=== PATIENT | male | born 1935 | race Caucasian/White ===

== ENCOUNTER 2016-08-10 08:05 | Outpatient (CLI) | payer MEDICARE, OTHER | END 2016-08-10 08:06 | disposition home or self-care (01) | DX: I10 Essential (primary) hypertension (principal); E78.5 Hyperlipidemia, unspecified; E11.51 Type 2 diabetes mellitus with diabetic peripheral angiopathy without gangrene; E11.29 Type 2 diabetes mellitus with other diabetic kidney complication ==

== ENCOUNTER 2016-08-24 20:15 | Outpatient (CLI) | payer MEDICARE, OTHER ==
--- NOTE | 2016-08-25 14:00 | Ultrasound Report ---
CAROTID DUPLEX: 08/24/2016 CLINICAL INDICATION: CVA, upper limb paresthesias. TECHNIQUE: Real-time sonographic vascular imaging was performed by the banana grader through the carotid arteries utilizing both color-flow and Doppler spectral analysis. Multiple insurance follow up representative static images were saved for review. Vessel PSV cm/sec 2D Plaque Estimate % ICA/CCA PSV EDV cm/sec % Stenosis RCCA Prox 89.1 -- RCCA Dist 45.9 8.2 RECA 92.4 -- RT BULB 60.5 -- 1.3 5.9 ISIDRO Prox 64.2 -- 1.4 12.3 ISIDRO Mid 73.9 -- 1.6 19.4 ISIDRO Dist 70.5 -- 1.6 19.4 RVA 54.6 RVA flow direction: Antegrade. Vessel PSV cm/sec 2D Plaque Estimate % ICA/CCA PSV EDV cm/sec % Stenosis LCCA Prox 77.9 -- LCCA Dist 51.2 10.1 LECA 61.6 -- LFT BULB 51.5 -- 1 20.9 LICA Prox 62 -- 1.2 9.3 LICA Mid 65.4 -- 1.3 22.0 LICA Dist 38.7 -- 0.7 7.3 LVA 50.8 LVA flow direction: Antegrade. Velocity criteria are extrapolated from diameter data as defined by the Society of Radiologists in Ultrasound Consensus Conference Radiology 2003; 229; 340-346. Degree of Stenosis % ICA PSV cm/sec Plaque Estimate % ICA/CCA RSV Ratio ICA EDV cm/sec Normal < 125 None < 2.0 < 40 <50 < 125 < 50 < 2.0 < 40 50-69 125 - 130 >/= 50 2.0 - 4.0 40 - 100 >/= 70 but less than near occlusion > 230 >/= 50 > 4.0 > 100 Near occlusion High, low, or undetectable Visible lumen Variable Variable Total occlusion Undetectable No detectable lumen Not applicable Not applicable FINDINGS RIGHT: There is minimal calcified plaquing in the right carotid bifurcation, without evidence of a focal hemodynamically significant stenosis. LEFT: There is minimal calcified plaquing in the left carotid bifurcation, without evidence of a focal hemodynamically significant stenosis. The vertebral arteries demonstrate antegrade flow bilaterally. IMPRESSION: MINIMAL PLAQUING BILATERALLY, WITHOUT EVIDENCE OF A FOCAL HEMODYNAMICALLY SIGNIFICANT CAROTID STENOSIS. MTDD
== END 2016-08-24 20:45 | disposition home or self-care (01) ==
LOC: DI 20:15
PROVIDERS: ATTEND Family Medicine
DX: R20.2 Paresthesia of skin (principal); Z86.73 Personal history of transient ischemic attack (TIA), and cerebral infarction without residual deficits
CPT/HCPCS: 70551; 71250; 93880

== ENCOUNTER 2016-08-27 09:00 | Outpatient (CLI) | payer MEDICARE, OTHER ==
--- NOTE | 2016-08-27 10:47 | MRI Report ---
* REVISED: THIS REPORT WAS ORIGINALLY SIGNED ON 08/27/2016 @ 1047. REPORT MOVED TO CORRECT ACCOUNT ON 09/16/2016. EXAM: MRI BRAIN WITHOUT CONTRAST EXAM DATE: 08/27/2016 10:05 AM. CLINICAL HISTORY: History of cerebrovascular accident, paresthesia of left upper limb. Dyspnea on exertion. COMPARISON: Carotid ultrasound 08/24/2016 TECHNIQUE: Multiplanar, multisequence T1-weighted and fluid-sensitive MR sequences of the brain were performed. Sequences optimized for routine evaluation. Other: None. IV Contrast: None. FINDINGS: Brain Volume: Moderate diffuse cerebral and cerebellar volume loss with ex vacuo dilatation of the ventricles and sulci, appropriate for age. Parenchyma/Dura: No masses, acute or subacute infarcts, or hemorrhage. Moderate scattered T2/FLAIR hyperintense periventricular, deep, and subcortical white matter lesions within cerebral hemispheres bilaterally, right cerebellar hemisphere, as well as within the brayan centrally. No parenchymal microhemorrhages. Ventricles/Cisterns: Moderate, age-appropriate, ex vacuo dilatation of the ventricles. Sinuses: Mild mucosal thickening right maxillary sinus. Remaining paranasal sinuses are clear. Bones: Normal. Other: Status post right lens replacement surgery. The visualized orbits are otherwise unremarkable. IMPRESSION: 1. No evidence of acute or subacute infarct, intracranial hemorrhage, mass, midline shift, or hydrocephalus. 2. Moderate scattered T2/FLAIR hyperintense periventricular, deep, and subcortical white matter lesions within cerebral hemispheres bilaterally, right cerebellar hemisphere, as well as within the brayan centrally. 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 3. Moderate diffuse cerebral and cerebellar volume loss with ex vacuo dilatation of the ventricles and sulci, appropriate for age. [facility] Referring Provider Line: [phone] SITE ID: [id number] MTDD
--- NOTE | 2016-08-27 14:30 | CT Report ---
* REVISED: THIS REPORT WAS ORIGINALLY SIGNED ON 08/28/2016 @ 0809. REPORT MOVED TO CORRECT ACCOUNT ON 09/16/2016. CT OF THE CHEST WITHOUT CONTRAST: 08/27/2016 CLINICAL INDICATION: Dyspnea on exertion, abnormal chest x-ray. COMPARISON: Chest x-ray of 08/18/2016. TECHNIQUE: Axial CT images of the chest were obtained without intravenous contrast. No previous CT is available for comparison. FINDINGS: The heart and great vessels demonstrate atherosclerotic calcifications and changes of previous cardiac surgery. No hilar or mediastinal lymphadenopathy is present. There is a prominent left epicardial fat pad, accounting for some of the lingular opacity seen on previous chest x-ray. The lungs demonstrate dependent atelectasis. No focal consolidation or pulmonary nodule is seen. No effusion or pneumothorax is present. The osseous structures demonstrate degenerative and postsurgical changes. Limited evaluation of upper abdominal structures demonstrates postoperative changes of left nephrectomy. IMPRESSION: PROMINENT LEFT EPICARDIAL FAT PAD, ACCOUNTING FOR THE CHEST X-RAY ABNORMALITY. BIBASILAR ATELECTASIS. NO SUSPICIOUS PULMONARY NODULE OR MASS LESION IS SEEN. In accordance with CT protocol optimization, one or more of the following dose reduction techniques were utilized for this exam: automated exposure control, adjustment of mA and/or KV based on patient size, or use of iterative reconstructive technique. JOB #: [id number] EXT JOB #: [id number] [facility]
== END 2016-08-27 11:30 ==
LOC: DI 09:00
PROVIDERS: ATTEND Family Medicine
DX: R06.00 Dyspnea, unspecified (principal); Z86.73 Personal history of transient ischemic attack (TIA), and cerebral infarction without residual deficits; R20.2 Paresthesia of skin
CPT/HCPCS: 70551; 71250

== ENCOUNTER 2016-11-24 07:20 | Outpatient (CLI) | payer MEDICARE, OTHER ==
[2016-11-24 14:11] LABS: HEMOGLOBIN A1C 0.97 g/dL
[2016-11-24 14:31] LABS: ALBUMIN/GLOBULIN RATIO 1.1 (1.0-2.2); BILIRUBIN,TOTAL 0.7 mg/dL (0.2-1.0); BUN - BLOOD UREA NITROGEN 30 mg/dL (6-20); CALCIUM 8.9 mg/dL (8.5-10.3); CARBON DIOXIDE - CO2 28 mmol/L (21-32); CHLORIDE 102 mmol/L (101-111); CHOLESTEROL 125 mg/dL; GFR - MDRD 32 (>89); GLUCOSE 173 mg/dL (70-100); HDL CHOLESTEROL 41 mg/dL; LDL/HDL RATIO 1.3 (<3.6); SODIUM 140 mmol/L (135-145); TOTAL PROTEIN 7.3 g/dL (6.7-8.2); TRIGLYCERIDES 148 mg/dL; VLDL CHOLESTEROL 30 mg/dL
== END 2016-11-24 07:21 | disposition home or self-care (01) ==
LOC: LAB.WCP 07:20
PROVIDERS: ATTEND Family Medicine
DX: E11.9 Type 2 diabetes mellitus without complications (principal); E78.5 Hyperlipidemia, unspecified
CPT/HCPCS: 36415; 80053; 80061; 83036

== ENCOUNTER 2016-12-11 15:06 | Outpatient (CLI) | payer MEDICARE, OTHER ==
[2016-12-11 14:53] LABS: CALCIUM 8.4 mg/dL (8.5-10.3); CREATININE 1.8 mg/dL (0.6-1.2); POTASSIUM 4.1 mmol/L (3.5-5.0)
== END 2016-12-11 15:07 | disposition home or self-care (01) ==
LOC: LAB.WCP 15:06
PROVIDERS: ATTEND Nurse Practitioner Family
DX: Z51.81 Encounter for therapeutic drug level monitoring (principal); Z79.899 Other long term (current) drug therapy
CPT/HCPCS: 36415; 80048

== ENCOUNTER 2017-08-05 10:11 | Outpatient (CLI) | payer MEDICARE, OTHER ==
[2017-08-05 12:49] LABS: BASOPHILS % (AUTO) 0.6 %; EOSINOPHILS # (AUTO) 0.1 10^3/uL (0.0-0.7); HGB - HEMOGLOBIN 13.6 g/dL (14.0-18.0); LYMPHOCYTES # (AUTO) 0.9 10^3/uL (1.5-3.5); LYMPHOCYTES % (AUTO) 13.6 %; MEAN CORPUSCULAR HEMOGLOBIN 31.4 pg (27.0-31.0); MEAN CORPUSCULAR HGB CONC 33.6 g/dL (32.0-36.0); MEAN CORPUSCULAR VOLUME 93.4 fL (80.0-94.0); MEAN PLATELET VOLUME 8.9 fL (7.4-11.4); MONOCYTES # (AUTO) 0.4 10^3/uL (0.0-1.0); MONOCYTES % (AUTO) 6.8 %; NEUTROPHILS # (AUTO) 5.1 10^3/uL (1.5-6.6); PLT - PLATELET COUNT 229 10^3/uL (130-450); RED BLOOD COUNT 4.34 10^6/uL (4.70-6.10); RED CELL DISTRIBUTION WIDTH 14.2 % (12.0-15.0); WHITE BLOOD COUNT 6.6 x10^3/uL (4.8-10.8)
[2017-08-05 13:02] LABS: HEMOGLOBIN A1C 0.81 g/dL; HEMOGLOBIN A1C % 7.1 % (4.6-6.2)
[2017-08-05 13:16] LABS: ALBUMIN 3.8 g/dL (3.2-5.5); ALBUMIN/GLOBULIN RATIO 1.1 (1.0-2.2); ALKALINE PHOSPHATASE 79 IU/L (42-121); ALT ALANINE AMINOTRANSFERASE 19 IU/L (10-60); AST ASPARTATE AMINOTRANSFERASE 25 IU/L (10-42); BUN - BLOOD UREA NITROGEN 39 mg/dL (6-20); CALCIUM 8.6 mg/dL (8.5-10.3); CARBON DIOXIDE - CO2 26 mmol/L (21-32); CHLORIDE 104 mmol/L (101-111); CHOL/HDL RATIO 2.8 (<5.0); CHOLESTEROL 102 mg/dL; CREATININE 2.3 mg/dL (0.6-1.2); GFR - MDRD 27 (>89); GLUCOSE 125 mg/dL (70-100); HDL CHOLESTEROL 36 mg/dL; LDL CHOLESTEROL,CALCULATED 46 mg/dL; LDL/HDL RATIO 1.3 (<3.6); SODIUM 137 mmol/L (135-145); TOTAL PROTEIN 7.4 g/dL (6.7-8.2); URIC ACID 7.1 mg/dL (2.6-7.2); VLDL CHOLESTEROL 20 mg/dL
== END 2017-08-05 10:12 ==
LOC: LAB.WCP 10:11
PROVIDERS: ATTEND Family Medicine
DX: E11.29 Type 2 diabetes mellitus with other diabetic kidney complication (principal)
CPT/HCPCS: 36415; 80053; 80061; 83036; 83721; 84550; 85025

== ENCOUNTER 2017-09-03 15:27 | Outpatient (CLI) | payer MEDICARE, OTHER ==
[2017-09-03 18:49] LABS: BASOPHILS % (AUTO) 0.4 %; EOSINOPHILS # (AUTO) 0.1 10^3/uL (0.0-0.7); EOSINOPHILS % (AUTO) 1.3 %; HGB - HEMOGLOBIN 13.4 g/dL (14.0-18.0); LYMPHOCYTES # (AUTO) 0.7 10^3/uL (1.5-3.5); LYMPHOCYTES % (AUTO) 12.8 %; MEAN CORPUSCULAR HEMOGLOBIN 32.3 pg (27.0-31.0); MEAN CORPUSCULAR HGB CONC 33.7 g/dL (32.0-36.0); MEAN PLATELET VOLUME 8.8 fL (7.4-11.4); MONOCYTES # (AUTO) 0.4 10^3/uL (0.0-1.0); MONOCYTES % (AUTO) 6.7 %; NEUTROPHILS # (AUTO) 4.5 10^3/uL (1.5-6.6); NEUTROPHILS % (AUTO) 78.8 %; PLT - PLATELET COUNT 204 10^3/uL (130-450); RED BLOOD COUNT 4.14 10^6/uL (4.70-6.10); RED CELL DISTRIBUTION WIDTH 14.8 % (12.0-15.0); WHITE BLOOD COUNT 5.8 x10^3/uL (4.8-10.8)
[2017-09-03 18:55] LABS: CREATININE 2.5 mg/dL (0.6-1.2)
[2017-09-03 19:07] LABS: HB2 TOTAL 14.5 g/dL; HEMOGLOBIN A1C 0.77 g/dL
== END 2017-09-03 15:28 | disposition home or self-care (01) ==
LOC: LAB.WCP 15:27
PROVIDERS: ATTEND Orthopaedic Surgery
DX: Z01.812 Encounter for preprocedural laboratory examination (principal); Z01.818 Encounter for other preprocedural examination; R73.09 Other abnormal glucose; N39.9 Disorder of urinary system, unspecified
CPT/HCPCS: 36415; 80048; 83036; 85025

== ENCOUNTER 2017-09-06 08:00 | Outpatient (CLI) | payer MEDICARE, OTHER ==
[2017-09-06 19:26] LABS: BILIRUBIN,URINE NEGATIVE (NEGATIVE); GLUCOSE, URINE (UA) 100 mg/dL (NEGATIVE); KETONES,URINE (UA) NEGATIVE (NEGATIVE); LEUKOCYTE ESTERASE, URINE NEGATIVE (NEGATIVE); NITRITE,URINE NEGATIVE (NEGATIVE); OCCULT BLOOD,URINE SMALL (NEGATIVE); PROTEIN,URINE >=300 mg/dL (NEGATIVE); UROBILINOGEN,URINE 0.2 (NORMAL) E.U./dL (NORMAL)
[2017-09-06 19:29] LABS: CLARITY,URINE CLEAR (CLEAR)
[2017-09-06 20:00] LABS: BACTERIA,URINE None Seen /HPF (None Seen); CASTS, URINE 3-5 Hyaline Casts /LPF; EPITHELIAL CELLS,UR FEW Renal Tubular /HPF (<= Few); RBC,URINE 0-5 /HPF (0-5); SQUAMOUS EPITHELIAL CELL,UR RARE Squamous (<= Few)
== END 2017-09-06 08:01 | disposition home or self-care (01) ==
LOC: LAB.WCP 08:00
PROVIDERS: ATTEND Orthopaedic Surgery
DX: Z01.812 Encounter for preprocedural laboratory examination (principal); E11.9 Type 2 diabetes mellitus without complications; N39.9 Disorder of urinary system, unspecified; R73.09 Other abnormal glucose
CPT/HCPCS: 81001; 81003; 82043; 87086

== ENCOUNTER 2018-07-05 08:44 | Outpatient (CLI) | payer MEDICARE, OTHER ==
[2018-07-05 12:25] LABS: BILIRUBIN,URINE NEGATIVE (NEGATIVE); GLUCOSE, URINE (UA) 100 mg/dL (NEGATIVE); KETONES,URINE (UA) NEGATIVE (NEGATIVE); LEUKOCYTE ESTERASE, URINE NEGATIVE (NEGATIVE); NITRITE,URINE NEGATIVE (NEGATIVE); OCCULT BLOOD,URINE TRACE-INTA (NEGATIVE); PH,URINE 6.5 PH (5.0-7.5); PROTEIN,URINE 100 mg/dL (NEGATIVE); UROBILINOGEN,URINE 0.2 (NORMAL) E.U./dL (NORMAL)
[2018-07-05 12:29] LABS: CLARITY,URINE CLEAR (CLEAR)
[2018-07-05 12:34] LABS: BASOPHILS % (AUTO) 0.7 %; EOSINOPHILS # (AUTO) 0.1 10^3/uL (0.0-0.7); EOSINOPHILS % (AUTO) 2.1 %; HGB - HEMOGLOBIN 13.2 g/dL (14.0-18.0); LYMPHOCYTES # (AUTO) 0.6 10^3/uL (1.5-3.5); LYMPHOCYTES % (AUTO) 11.2 %; MEAN CORPUSCULAR HEMOGLOBIN 30.2 pg (27.0-31.0); MEAN CORPUSCULAR HGB CONC 32.7 g/dL (32.0-36.0); MEAN CORPUSCULAR VOLUME 92.3 fL (80.0-94.0); MEAN PLATELET VOLUME 9.4 fL (7.4-11.4); MONOCYTES # (AUTO) 0.4 10^3/uL (0.0-1.0); NEUTROPHILS # (AUTO) 4.4 10^3/uL (1.5-6.6); PLT - PLATELET COUNT 211 10^3/uL (130-450); RBC,URINE 0-5 /HPF (0-5); RED BLOOD COUNT 4.38 10^6/uL (4.70-6.10); RED CELL DISTRIBUTION WIDTH 15.1 % (12.0-15.0); WHITE BLOOD COUNT 5.5 x10^3/uL (4.8-10.8)
[2018-07-05 12:35] LABS: BACTERIA,URINE Rare /HPF (None Seen); SQUAMOUS EPITHELIAL CELL,UR RARE Squamous (<= Few)
[2018-07-05 12:40] LABS: CHOL/HDL RATIO 2.8 (<5.0); CHOLESTEROL 108 mg/dL; HDL CHOLESTEROL 39 mg/dL; LDL CHOLESTEROL,CALCULATED 47 mg/dL; LDL/HDL RATIO 1.2 (<3.6); VLDL CHOLESTEROL 22 mg/dL
[2018-07-05 12:49] LABS: ALBUMIN 3.7 g/dL (3.2-5.5); ALBUMIN/GLOBULIN RATIO 1.1 (1.0-2.2); BILIRUBIN,TOTAL 0.9 mg/dL (0.2-1.0); CALCIUM 8.7 mg/dL (8.5-10.3); CREATININE 2.6 mg/dL (0.6-1.2); URIC ACID 6.2 mg/dL (2.6-7.2)
[2018-07-05 12:52] LABS: HB2 TOTAL 13.9 g/dL; HEMOGLOBIN A1C 0.81 g/dL; HEMOGLOBIN A1C % 7.5 % (4.6-6.2)
[2018-07-05 13:05] LABS: CREATININE,URINE 73.5 mg/dL; PROTEIN/CREATININE RATIO,URINE 4.2 (<=0.2)
== END 2018-07-05 08:45 | disposition home or self-care (01) ==
LOC: LAB.WCP 08:44
PROVIDERS: ATTEND Family Medicine
DX: E11.22 Type 2 diabetes mellitus with diabetic chronic kidney disease (principal); N18.4 Chronic kidney disease, stage 4 (severe)
CPT/HCPCS: 36415; 80053; 80061; 81001; 82043; 82306; 82570; 83036; 83721; 83970; 84156; 84550; 85025; 87086

== ENCOUNTER 2018-08-19 08:00 | Outpatient (CLI) | payer MEDICARE, OTHER ==
[2018-08-19 19:04] LABS: CALCIUM 8.2 mg/dL (8.5-10.3); CREATININE 3.1 mg/dL (0.6-1.2); PHOSPHORUS 4.4 mg/dL (2.5-4.6)
[2018-08-19 20:30] LABS: CREATININE,URINE 86.3 mg/dL; PROTEIN/CREATININE RATIO,URINE 2.4 (<=0.2)
== END 2018-08-19 23:59 | disposition home or self-care (01) ==
LOC: LAB.WCP 08:00
PROVIDERS: ATTEND Internal Medicine
DX: N18.4 Chronic kidney disease, stage 4 (severe) (principal)
CPT/HCPCS: 36415; 80048; 82570; 84100; 84156

== ENCOUNTER 2018-10-17 14:50 | Outpatient (CLI) | payer MEDICARE, OTHER ==
[2018-10-17 18:42] LABS: CALCIUM 8.2 mg/dL (8.5-10.3); CREATININE 3.5 mg/dL (0.6-1.2)
== END 2018-10-17 14:51 | disposition home or self-care (01) ==
LOC: LAB.WCP 14:50
PROVIDERS: ATTEND Internal Medicine
DX: N18.4 Chronic kidney disease, stage 4 (severe) (principal); R39.9 Unspecified symptoms and signs involving the genitourinary system
CPT/HCPCS: 36415; 80048; 87086

== ENCOUNTER 2018-10-24 06:08 | Day surgery (SDC) | payer MEDICARE, OTHER ==
[2018-10-24] MEDS ORDERED: levoFLOXacin 500 MG/100 ML 500 MG/100 ML BAG IV ONE (06:31)
--- NOTE | 2018-10-24 07:07 | ANESTHESIA ---
Pre-Anesthesia VS, & Labs - Diagnosis history of bladder tumor - Procedure cysto, TURBT, Retrograde pyeloragram Vital Signs: Temp Pulse Resp BP Pulse Ox 36.2 C L 69 20 190/84 H 99 10/24/18 06:30 10/24/18 06:30 10/24/18 06:30 10/24/18 06:30 10/24/18 06:30 Height 5 ft 10 in Weight (kg) 120.6 kg Body Mass Index 34.0 - NPO >8 hours Home Medications and Allergies Home Medications: Ambulatory Orders diltiaZEM [Cardizem] 60 mg PO ONCE 10/24/18 hydrALAZINE [Apresoline] 25 mg PO 10/24/18 Aspirin [Aspir 81] 81 mg PO DAILY 11/04/12 Allopurinol 100 mg PO BID 11/07/12 Ezetimibe [Zetia] 10 mg PO DAILY 11/07/12 Omeprazole 20 mg PO DAILY 11/07/12 Vit B12/FA/Pyridoxine HCl/Aa15 [Glycotrol Capsule] 1 each PO DAILY 11/07/12 Pioglitazone HCl [Actos] 30 mg PO DAILY 11/09/13 Acetaminophen [Tylenol] 1,300 mg PO Q6H PRN 11/13/13 Atorvastatin Calcium 40 mg PO DAILY 08/06/15 Furosemide 20 mg PO DAILY 08/06/15 Isosorbide Mononitrate [Isosorbide Mononitrate ER] 60 mg PO DAILY 08/06/15 diltiaZEM [Cardizem] 60 mg PO ONCE 10/24/18 hydrALAZINE [Apresoline] 25 mg PO 10/24/18 Allergies/Adverse Reactions: Allergies Allergy/AdvReac Type Severity Reaction Status Date / Time griseofulvin Allergy Severe Anaphylaxis Verified 11/28/13 08:34 bacitracin Allergy Intermediate Rash Verified 11/04/12 14:10 [From Neosporin ([id number])] bacitracin zinc * Allergy Intermediate Rash Verified 11/04/12 14:10 [From Neosporin ([id number])] neomycin sulfate * Allergy Intermediate Rash Verified 11/04/12 14:10 [From Neosporin ([id number])] polymyxin B Allergy Intermediate Rash Verified 11/04/12 14:10 [From Neosporin ([id number])] Anes History & Medical History - Anesthetic History Anesthesia Complications: reports: No previous complications - Medical History Cardiovascular: reports: Hypertension, High cholesterol, Coronary artery disease Pulmonary: reports: Shortness of breath, Sleep apnea (states he is "borderline" and does not use CPAP) Gastrointestinal: reports: GERD (controlled with medication) Urinary: reports: Renal insuffiency (CKD, Cr-3.5, BUN-63), Frequency, Other (S/p nephrectomy) Neuro: reports: CVA (no residual) Musculoskeletal: reports: Osteoarthritis, Gout Endocrine/Autoimmune: reports: Type 2 diabetes Blood Disorders: reports: None Skin: reports: None Smoking Status: Former smoker (quit 37 years ago) Psychosocial: reports: Alcohol (2 mixed drinks per day) - Surgical History General: Colonoscopy Eyes Ears Nose Throat (EENT): Cataracts Cardiothoracic: Angioplasty, CABG, Coronary stent, Cardiac catheterization Urologic: Nephrectomy, Bladder surgery Results - EKG Results EKG Comparison: Reviewed EKG - Echo Results Echo Results: Report reviewed Exam General: Alert, Oriented x3, Cooperative, No acute distress Dental: Dentures full Upper, Partials Lower Mouth Openin Fingerbreadth Neck Mobility: Normal Mallampati classification: II Thyromental Distance: 4-6 cm Respiratory: Wheezing (expiratory) Cardiovascular: Regular rate, Normal S1, Normal S2, No murmurs Plan Anesthesia Type: General Consent for Procedure(s) Verified and Reviewed: Yes Code Status: Attempt Resuscitation ASA classification: 3-Severe systemic disease Is this case an emergency?: No
[2018-10-24] MEDS ORDERED: LACTATED RINGERS 1,000 ML IV ONE (07:08)
[2018-10-24] MEDS ORDERED: IOTHALAMATE MEGLUMINE 50 ML VIAL ONE (07:28)
[2018-10-24] MEDS ORDERED: SUGAMMADEX 200 MG/2 ML VIAL IVP ONE (07:30)
[2018-10-24 10:10] VITALS: BP 160/92
== END 2018-10-24 06:09 | disposition home or self-care (01) ==
LOC: SDS 06:08
PROVIDERS: ATTEND Urology
PROC: 0T5B8ZZ Destruction of Bladder, Via Natural or Artificial Opening Endoscopic (ICD-10-PCS; principal; 2018-10-24 07:30)
DX: C67.9 Malignant neoplasm of bladder, unspecified (principal); R39.9 Unspecified symptoms and signs involving the genitourinary system; I13.0 Hypertensive heart and chronic kidney disease with heart failure and stage 1 through stage 4 chronic kidney disease, or unspecified chronic kidney disease; I50.32 Chronic diastolic (congestive) heart failure; N18.9 Chronic kidney disease, unspecified; E11.22 Type 2 diabetes mellitus with diabetic chronic kidney disease; Z79.4 Long term (current) use of insulin; I25.10 Atherosclerotic heart disease of native coronary artery without angina pectoris; G47.30 Sleep apnea, unspecified; Z87.891 Personal history of nicotine dependence; Z95.1 Presence of aortocoronary bypass graft; Z95.5 Presence of coronary angioplasty implant and graft
CPT/HCPCS: 52234; J7120; Q9961

== ENCOUNTER 2018-12-06 08:00 | Outpatient (CLI) | payer MEDICARE, OTHER ==
[2018-12-06 12:39] LABS: BASOPHILS % (AUTO) 0.4 %; EOSINOPHILS # (AUTO) 0.2 10^3/uL (0.0-0.7); EOSINOPHILS % (AUTO) 3.4 %; HGB - HEMOGLOBIN 12.4 g/dL (14.0-18.0); LYMPHOCYTES # (AUTO) 0.7 10^3/uL (1.5-3.5); LYMPHOCYTES % (AUTO) 12.8 %; MEAN CORPUSCULAR HGB CONC 32.9 g/dL (32.0-36.0); MEAN CORPUSCULAR VOLUME 97.2 fL (80.0-94.0); MEAN PLATELET VOLUME 11.3 fL (7.4-11.4); MONOCYTES # (AUTO) 0.4 10^3/uL (0.0-1.0); MONOCYTES % (AUTO) 7.7 %; NEUTROPHILS % (AUTO) 74.9 %; PLT - PLATELET COUNT 179 10^3/uL (130-450); RED BLOOD COUNT 3.88 10^6/uL (4.70-6.10); RED CELL DISTRIBUTION WIDTH 13.9 % (12.0-15.0); WHITE BLOOD COUNT 5.3 x10^3/uL (4.8-10.8)
[2018-12-06 12:44] LABS: ALBUMIN 3.9 g/dL (3.2-5.5); ALBUMIN/GLOBULIN RATIO 1.1 (1.0-2.2); BILIRUBIN,TOTAL 0.7 mg/dL (0.2-1.0); CALCIUM 8.3 mg/dL (8.5-10.3); CREATININE 2.7 mg/dL (0.6-1.2); PHOSPHORUS 4.4 mg/dL (2.5-4.6); TOTAL PROTEIN 7.5 g/dL (6.7-8.2); URIC ACID 8.7 mg/dL (2.6-7.2)
[2018-12-06 12:46] LABS: HB2 TOTAL 12.6 g/dL; HEMOGLOBIN A1C 0.66 g/dL; HEMOGLOBIN A1C % 6.9 % (4.6-6.2)
== END 2018-12-06 23:59 | disposition home or self-care (01) ==
LOC: LAB.WCP 08:00
PROVIDERS: ATTEND Internal Medicine
DX: E11.22 Type 2 diabetes mellitus with diabetic chronic kidney disease (principal); N18.4 Chronic kidney disease, stage 4 (severe); E11.51 Type 2 diabetes mellitus with diabetic peripheral angiopathy without gangrene
CPT/HCPCS: 36415; 80053; 83036; 83970; 84100; 84550; 85025

== ENCOUNTER 2019-08-29 09:28 | Outpatient (CLI) | payer MEDICARE, OTHER ==
[2019-08-29 11:57] LABS: BASOPHILS % (AUTO) 0.4 %; EOSINOPHILS # (AUTO) 0.1 10^3/uL (0.0-0.7); EOSINOPHILS % (AUTO) 1.5 %; HGB - HEMOGLOBIN 12.4 g/dL (14.0-18.0); LYMPHOCYTES # (AUTO) 0.6 10^3/uL (1.5-3.5); LYMPHOCYTES % (AUTO) 12.3 %; MEAN CORPUSCULAR HEMOGLOBIN 31.8 pg (27.0-31.0); MEAN CORPUSCULAR HGB CONC 33.2 g/dL (32.0-36.0); MEAN CORPUSCULAR VOLUME 95.6 fL (80.0-94.0); MEAN PLATELET VOLUME 11.2 fL (7.4-11.4); MONOCYTES # (AUTO) 0.4 10^3/uL (0.0-1.0); MONOCYTES % (AUTO) 8.7 %; NEUTROPHILS # (AUTO) 3.5 10^3/uL (1.5-6.6); PLT - PLATELET COUNT 194 10^3/uL (130-450); RED CELL DISTRIBUTION WIDTH 14.6 % (12.0-15.0); WHITE BLOOD COUNT 4.6 x10^3/uL (4.8-10.8)
[2019-08-29 12:10] LABS: ALBUMIN 3.9 g/dL (3.2-5.5); ALBUMIN/GLOBULIN RATIO 1.1 (1.0-2.2); BILIRUBIN,TOTAL 0.6 mg/dL (0.2-1.0); CALCIUM 7.9 mg/dL (8.5-10.3); CREATININE 3.8 mg/dL (0.6-1.2); PHOSPHORUS 4.6 mg/dL (2.5-4.6); TOTAL PROTEIN 7.6 g/dL (6.7-8.2)
[2019-08-29 12:16] LABS: HEMOGLOBIN A1C 0.61 g/dL; HEMOGLOBIN A1C % 6.4 % (4.6-6.2)
[2019-08-29 12:50] LABS: CREATININE,URINE 64.3 mg/dL; MICROALBUM/CREATININE RATIO,UR 2469.7 ug/mg (<30.0); MICROALBUMIN,URINE 158.8 mg/dL (0-300.0)
== END 2019-08-29 23:59 | disposition home or self-care (01) ==
LOC: LAB.WCP 09:28
PROVIDERS: ATTEND Family Medicine
DX: E11.21 Type 2 diabetes mellitus with diabetic nephropathy (principal); N18.4 Chronic kidney disease, stage 4 (severe); E11.22 Type 2 diabetes mellitus with diabetic chronic kidney disease; E11.29 Type 2 diabetes mellitus with other diabetic kidney complication
CPT/HCPCS: 36415; 80048; 80053; 82043; 82306; 82570; 83036; 83970; 84100; 85025

== ENCOUNTER 2019-10-18 08:00 | Outpatient (CLI) | payer MEDICARE, OTHER ==
[2019-10-18 18:37] LABS: BASOPHILS % (AUTO) 0.6 %; EOSINOPHILS # (AUTO) 0.1 10^3/uL (0.0-0.7); EOSINOPHILS % (AUTO) 2.3 %; HGB - HEMOGLOBIN 11.3 g/dL (14.0-18.0); LYMPHOCYTES # (AUTO) 0.8 10^3/uL (1.5-3.5); LYMPHOCYTES % (AUTO) 15.1 %; MEAN CORPUSCULAR HGB CONC 31.7 g/dL (32.0-36.0); MEAN CORPUSCULAR VOLUME 100.8 fL (80.0-94.0); MEAN PLATELET VOLUME 10.6 fL (7.4-11.4); MONOCYTES # (AUTO) 0.4 10^3/uL (0.0-1.0); NEUTROPHILS # (AUTO) 3.9 10^3/uL (1.5-6.6); NEUTROPHILS % (AUTO) 73.9 %; PLT - PLATELET COUNT 282 10^3/uL (130-450); RED BLOOD COUNT 3.53 10^6/uL (4.70-6.10); RED CELL DISTRIBUTION WIDTH 14.4 % (12.0-15.0); WHITE BLOOD COUNT 5.3 x10^3/uL (4.8-10.8)
[2019-10-18 19:16] LABS: ALBUMIN 3.8 g/dL (3.2-5.5); ALBUMIN/GLOBULIN RATIO 0.9 (1.0-2.2); BILIRUBIN,TOTAL 0.9 mg/dL (0.2-1.0); CREATININE 4.2 mg/dL (0.6-1.2); PHOSPHORUS 4.6 mg/dL (2.5-4.6); TOTAL PROTEIN 7.9 g/dL (6.7-8.2)
== END 2019-10-18 23:59 | disposition home or self-care (01) ==
LOC: LAB.WCP 08:00
PROVIDERS: ATTEND Internal Medicine
DX: N18.4 Chronic kidney disease, stage 4 (severe) (principal)
CPT/HCPCS: 36415; 80053; 84100; 85025

== ENCOUNTER 2019-11-01 08:20 | Outpatient (CLI) | payer MEDICARE, OTHER ==
[2019-11-01 11:51] LABS: BASOPHILS % (AUTO) 0.4 %; EOSINOPHILS # (AUTO) 0.2 10^3/uL (0.0-0.7); EOSINOPHILS % (AUTO) 4.9 %; HGB - HEMOGLOBIN 12.2 g/dL (14.0-18.0); LYMPHOCYTES # (AUTO) 0.6 10^3/uL (1.5-3.5); LYMPHOCYTES % (AUTO) 12.9 %; MEAN CORPUSCULAR HEMOGLOBIN 31.6 pg (27.0-31.0); MEAN CORPUSCULAR HGB CONC 31.6 g/dL (32.0-36.0); MONOCYTES # (AUTO) 0.4 10^3/uL (0.0-1.0); MONOCYTES % (AUTO) 7.8 %; NEUTROPHILS # (AUTO) 3.5 10^3/uL (1.5-6.6); NEUTROPHILS % (AUTO) 73.6 %; PLT - PLATELET COUNT 241 10^3/uL (130-450); RED BLOOD COUNT 3.86 10^6/uL (4.70-6.10); RED CELL DISTRIBUTION WIDTH 13.8 % (12.0-15.0); WHITE BLOOD COUNT 4.7 x10^3/uL (4.8-10.8)
[2019-11-01 12:29] LABS: ALBUMIN 3.9 g/dL (3.2-5.5); BILIRUBIN,TOTAL 0.6 mg/dL (0.2-1.0); CALCIUM 8.1 mg/dL (8.5-10.3); PHOSPHORUS 5.6 mg/dL (2.5-4.6); TOTAL PROTEIN 7.8 g/dL (6.7-8.2)
[2019-11-01 12:34] LABS: CHOL/HDL RATIO 5.9 (<5.0); CHOLESTEROL 172 mg/dL; HDL CHOLESTEROL 29 mg/dL; LDL CHOLESTEROL,CALCULATED 119 mg/dL; LDL/HDL RATIO 4.1 (<3.6); VLDL CHOLESTEROL 24 mg/dL
[2019-11-01 12:41] LABS: FERRITIN 67.4 ng/mL (23.9-336.2)
[2019-11-01 20:04] LABS: HEMOGLOBIN A1C 0.58 g/dL; HEMOGLOBIN A1C % 6.2 % (4.6-6.2)
[2019-11-02 11:40] LABS: HEPATITIS C ANTIBODY NON-REACTIVE (NON-REACTIVE)
[2019-11-02 15:14] LABS: HEPATITIS B SURFACE ANTIGEN NON-REACTIVE (NON-REACTIVE)
== END 2019-11-01 08:21 | disposition home or self-care (01) ==
LOC: LAB.WCP 08:20
PROVIDERS: ATTEND Internal Medicine
DX: N18.5 Chronic kidney disease, stage 5 (principal); E11.51 Type 2 diabetes mellitus with diabetic peripheral angiopathy without gangrene; N18.6 End stage renal disease; Z99.2 Dependence on renal dialysis; N18.4 Chronic kidney disease, stage 4 (severe); D64.9 Anemia, unspecified; E11.29 Type 2 diabetes mellitus with other diabetic kidney complication
CPT/HCPCS: 36415; 80053; 80061; 82607; 82728; 83036; 83721; 84100; 85025; 86704; 86803; 87340; 87522

== ENCOUNTER 2019-11-17 16:41 | Outpatient (CLI) | payer MEDICARE, OTHER ==
--- NOTE | 2019-11-17 16:44 | XRAY Report ---
PROCEDURE: Chest 1 View X-Ray INDICATIONS: ESRD, HTN TECHNIQUE: One view of the chest was acquired. COMPARISON: Two-view chest 08/18/[address] chest 08/27/2016. FINDINGS: Surgical changes and devices: Post CABG procedure. Lungs and pleura: No pleural effusions or pneumothorax. Increased opacification noted in the left irene ng base concerning for aspiration versus pneumonia. Mediastinum: Mediastinal contours appear normal. Heart size is normal. Bones and chest wall: No suspicious bony lesions. Overlying soft tissues appear unremarkable. IMPRESSION: Left basilar aspiration versus pneumonia. Reviewed by: Pastora Hammond MD, PhD on 11/17/2019 4:42 PM PDT Approved by: Pastora Hammond MD, PhD on 11/17/2019 4:42 PM PDT Station ID: [id number]
== END 2019-11-17 23:59 | disposition home or self-care (01) ==
LOC: DI.WCP 16:41
PROVIDERS: ATTEND Internal Medicine
DX: R91.8 Other nonspecific abnormal finding of lung field (principal)
CPT/HCPCS: 71045

== ENCOUNTER → 2020-10-05 | Outpatient (CLI) | payer MEDICARE, OTHER | END | disposition short-term general hospital (02) | LOC: EMS 07:21 | DX: R41.82 Altered mental status, unspecified (principal) | CPT/HCPCS: A0425; A0427 ==